=== PATIENT | female | born 1955 | race Caucasian/White ===

== ENCOUNTER 2017-05-19 18:11 | Emergency (ER) | payer OTHER ==
[~2017-05-19] VITALS: Ht 165.1 cm; Wt 63.5 kg
--- NOTE | ~2017-05-19 | EKG ---
PATIENT: EDIE HILLS UNIT #: [id number] Ventricular Rate: 54 BPM Atrial Rate: 54 BPM P-R Interval: 140 ms QRS Duration: 90 ms Q-T Interval: 434 ms QTC Calculation(Bezet): 411 ms P [place]: 61 degrees Calculated R [place]: 54 degrees Calculated T Canby: 62 degrees Diagnosis Line: Sinus bradycardia Diagnosis Line: Otherwise normal ECG Diagnosis Line: No previous ECGs available Diagnosis Line: Confirmed by PHUONG MCKINNEY MD ([id number]) on Diagnosis Line: 05/21/2017 9:42:46 AM INTERPRETING MD: HANK GAYLE
--- NOTE | ~2017-05-19 | CR72 ---
[facility] A Service of [facility] RADIOLOGY TEXT RESULTS PATIENT: EDIE HILLS LOCATION: [facility] : 57 UNIT #: [id number] AGE: [address]: Kaden Lorenzo MD SEX: F ORDER DR: [id number] [facility] [address] [place], [place] [address] [id number] E MR#: [id number] Acc #: [id number] NAME: EDIE HILLS : 1955 SEX: F STUDY DATE/TIME: 05/19/2017 20:49 UNIT: [facility] ROOM: STUDY DESCRIPTION: CR Chest Single View Portable Attending Physician: Kaden Lorenzo M.D. Ordering Physician: Kaden Lorenzo M.D. Primary Care Physician: No Primary Care Physician MEDICAL IMAGING REPORT This report is preliminary unless electronic signature is present EXAM Single view of the chest dated 05/19/2017 COMPARISON Single view chest dated 11/17/2014. HISTORY Cough, shortness of air for the last 5 months. Lower extremity swelling bilaterally for the last 2 days. History of diabetes, bronchitis, COPD. FINDINGS Single view of the chest was obtained. Calcified bilateral lung nodules are noted suggestive of old granulomatous disease. Postoperative changes are noted in the chest and in the lumbar spine, cervical spine. No superimposed acute cardiopulmonary disease. Dictated by... Allen Payne M.D. THIS IS AN ELECTRONICALLY VERIFIED REPORT Allen Payne M.D. at 05/20/2017 5:06 PM CPR/df TD: 05/20/2017 07:49 JOB #: [id number] MEDICAL IMAGING REPORT Page 1 of 1 COPY
--- NOTE | ~2017-05-19 | US84 ---
[id number] [facility] [address] [place], [place] [address] [id number] E MR#: [id number] Acc #: [id number] NAME: EDIE HILLS : 1955 SEX: F STUDY DATE/TIME: 05/19/2017 21:12 UNIT: [facility] ROOM: STUDY DESCRIPTION: US LE Veins Complete Fabricio Stdy Attending Physician: Kaden Lorenzo M.D. Ordering Physician: Kaden Lorenzo M.D. Primary Care Physician: No Primary Care Physician MEDICAL IMAGING REPORT This report is preliminary unless electronic signature is present EXAM Bilateral lower extremity venous duplex 05/19/2017 HISTORY Bilateral lower extremity pain and edema for 3 days. Evaluate for deep vein thrombosis. TECHNIQUE Venous ultrasound examination of both lower extremities was performed using grayscale, spectral Doppler and color flow Doppler imaging. FINDINGS The examination is negative. There is no evidence of deep venous thrombus from the groin to the lower calf bilaterally. Visualized greater saphenous veins are also patent. IMPRESSION Negative examination. No evidence of lower extremity deep venous thrombosis. Dictated by... Edward Chen M.D. THIS IS AN ELECTRONICALLY VERIFIED REPORT Edward Chen M.D. at 05/20/2017 10:40 AM ALE/may TD: 05/20/2017 08:12 JOB #: [id number] MEDICAL IMAGING REPORT Page 1 of 1 COPY
[~2017-05-19 18:11] MED LIST: ATARAX PO; COLACE PO; KEFLEX PO; LISINOPRIL PO; LOPRESSOR PO; PAXIL PO; PREDNISONE PO; VICODIN 5/500 T1 TAB PO; ZANTAC PO; ZESTORETIC 20/21 TAB PO
[2017-05-19 21:00] LABS: BASOPHIL# 0.1 X10e3 (0-0.3); BASOPHIL% 1.2 % (0-2.5); EOSINOPHIL# 0.5 X10e3 (0-0.7); EOSINOPHIL% 6.3 % (0.0-7.0); HEMOGLOBIN 13.1 gm/dL (12.0-16.0); LYMPHOCYTE# 2.7 X10e3 (1.0-3.5); LYMPHOCYTE% 37.3 % (17.0-45.0); MEAN CELL VOLUME 99.3 FL (83-96); MEAN CORPUSCULAR HEMOGLOBIN 33.3 PG (28-34); MEAN CORPUSCULAR HGB CONC 33.5 g/dL (30-36); MEAN PLATELET VOLUME 8.5 FL (6.5-11.5); MONOCYTE# 0.6 X10e3 (0-1.0); MONOCYTE% 8.7 % (3.0-12.0); NEUTROPHIL# 3.4 X10e3 (1.5-7.1); NEUTROPHIL% 46.5 % (40-75); PLATELET COUNT 171 X10e3 (140-420); RED BLOOD COUNT 3.93 X10e (3.90-5.30); RED CELL DISTRIBUTION WIDTH 14.1 % (11.0-15.5); WHITE BLOOD COUNT 7.2 X10e3 (4.0-10.5)
[2017-05-19 21:01] LABS: DIFF IND NO
[2017-05-19 21:30] LABS: POC - CKMB 3.5 ng/mL (0.0-7.9); POC - TROPONIN <0.05 ng/mL (<=0.05)
[2017-05-19 21:42] LABS: ALBUMIN SERUM 3.5 g/dL (3.5-5.0); BILIRUBIN, DIRECT 0.1 mg/dL (0.0-0.2); BUN/CREATININE RATIO 18.88; CALCIUM SERUM 8.7 mg/dL (8.4-10.2); CREATININE SERUM 0.9 mg/dL (0.6-1.4); GLOM FILT RATE Estimated 69.1 mL/min (>60); PROTEIN TOTAL SERUM 6.9 g/dL (6.0-8.3)
[2017-05-19 21:43] LABS: BILIRUBIN,TOTAL 0.1 mg/dL (0.2-2.0)
== END 2017-05-19 23:00 | disposition home or self-care (01) ==
LOC: CED 18:11
PROVIDERS: Emergency Medicine
DX: R60.0 Localized edema (principal); E11.9 Type 2 diabetes mellitus without complications; I10 Essential (primary) hypertension; J44.9 Chronic obstructive pulmonary disease, unspecified; Z88.5 Allergy status to narcotic agent; F17.210 Nicotine dependence, cigarettes, uncomplicated
CPT/HCPCS: 36415; 71010; 80048; 80076; 82553; 83880; 84484; 85025; 93005; 93970; 99285